=== PATIENT | female | born 1955 | race Caucasian/White ===

== ENCOUNTER 2025-01-22 13:45 | Outpatient (RCR) | payer MEDICARE, BC, SELFPAY | END 2025-05-22 23:59 | disposition home or self-care (01) | PROVIDERS: PCP Family Medicine; Visit Provider Orthopaedic Surgery | DX: M76.61 Achilles tendinitis, right leg (principal); M21.41 Flat foot [pes planus] (acquired), right foot; M21.42 Flat foot [pes planus] (acquired), left foot; M25.571 Pain in right ankle and joints of right foot; M17.12 Unilateral primary osteoarthritis, left knee; Z51.89 Encounter for other specified aftercare | CPT/HCPCS: 97110; 97140; 97161 ==